=== PATIENT | male | born 1980 | race Caucasian/White ===

== ENCOUNTER 2017-05-06 11:55 | Emergency (ER) | payer BC ==
[2017-05-06 12:13] VITALS: BP 151/91
--- NOTE | 2017-05-06 12:47 | RAD ---
Indication: Right hand injury. 4 views of the right hand demonstrates fracture of the head of the fourth and fifth metacarpals. No fracture is identified. IMPRESSION: Fractures of the head of the fourth and fifth metacarpal with volar angulation.
--- NOTE | 2017-05-06 13:48 | UC ---
Hand/Wrist HPI - HPI Summary HPI Summary: PUNCHED COMPUTER TABLE LAST NIGHT OUT OF FRUSTRATION WHEN COMPUTER WOULD NOT WORK. PRESENTS WITH PAIN, REDNESS, SWELLING AND BRUISING TO RIGHT HAND OVER 4TH AND 5TH METACARPALS. - History Of Current Complaint Chief Complaint: UCUpperExtremity Stated Complaint: HAND INJURY Time Seen by Provider: 05/06/17 12:16 Hx Obtained From: Patient Onset/Duration: Sudden Onset, Lasting Hours, Still Present Severity Initially: Moderate Severity Currently: Moderate Pain Intensity: 5 Pain Scale Used: 0-10 Numeric Character Of Pain: Dull, Aching Aggravating Factor(s): Movement Alleviating Factor(s): Nothing Associated Signs And Symptoms: Positive: Swelling, Redness, Bruising Related History: Dominant Hand Right - Allergies/Home Medications Allergies/Adverse Reactions: Allergies Allergy/AdvReac Type Severity Reaction Status Date / Time No Known Allergies Allergy Verified 05/06/17 12:06 Home Medications: Home Medications Aleve 1 tab PO PRN 05/06/17 [History] PMH/Surg Hx/FS Hx/Imm Hx Previously Healthy: Yes - Surgical History Surgical History: None - Family History Known Family History: Positive: Hypertension - Social History Alcohol Use: Rare Substance Use Type: None Smoking Status (MU): Former Smoker Length of Time of Smoking/Using Tobacco: 1 year Review of Systems Constitutional: Negative Skin: Bruising Respiratory: Negative Cardiovascular: Negative Gastrointestinal: Negative Musculoskeletal: Arthralgia, Decreased ROM, Edema All Other Systems Reviewed And Are Negative: Yes Physical Exam Triage Information Reviewed: Yes Appearance: Well-Appearing, No Pain Distress, Well-Nourished Vital Signs: Initial Vital Signs Temp 97.8 F 05/06/17 12:09 Pulse 72 05/06/17 12:09 Resp 16 05/06/17 12:09 BP 151/91 05/06/17 12:09 Pulse Ox 99 05/06/17 12:09 Vital Signs Reviewed: Yes Eyes: Positive: Conjunctiva Clear ENT: Positive: Hearing grossly normal Neck: Positive: Supple Respiratory: Positive: No respiratory distress, No accessory muscle use Cardiovascular: Positive: Pulses Normal Abdomen Description: Positive: Soft Musculoskeletal: Positive: ROM Limited @ - RIGHT HAND, Edema @ - RIGHT HAND, Other: - TTO RIGHT HAND 4TH AND 5TH METACARPALS Neurological: Positive: Alert Psychological: Positive: Age Appropriate Behavior Skin: Positive: Other - ERYTHEMA AND BRUISING RIGHT HAND OVERLYING 4TH AND 5TH METACARPALS Diagnostics - Radiology RIGHT HAND XRAY Xray Interpretation: Positive (See Comments) - Fractures of the head of the fourth and fifth metacarpal with volar angulation. Radiology Interpretation Completed By: Radiologist Hand/Wrist Course/Dx - Differential Dx/Diagnosis Provider Diagnoses: Fractures of the head of the fourth and fifth metacarpals - displaced Discharge - Discharge Plan Condition: Stable Disposition: HOME Patient Education Materials: Hand Fracture (ED) Referrals: Ronak Ragsdale MD [Medical Doctor] - 3 Days OFelisha Duff MD [Primary Care Provider] - If Needed Additional Instructions: XRAYS SHOW FRACTURES OF THE 4TH AND 5TH METACARPALS. WEAR THE SPLINT UNTIL SEEN BY [facility]. SLING FOR COMFORT. CALL [facility] TODAY FOR AN APPT EARLY NEXT WEEK. OTC MEDS NEEDED FOR PAIN. GO TO ER WITHOUT FAIL IF YOU DEVELOP WORSENING PAIN, FINGERS GO COLD, NUMB OR CHANGE COLOR.
== END 2017-05-06 13:43 | disposition home or self-care (01) ==
LOC: UCEAST 11:55
DX: S62.312A Displaced fracture of base of third metacarpal bone, right hand, initial encounter for closed fracture (principal); S62.314A Displaced fracture of base of fourth metacarpal bone, right hand, initial encounter for closed fracture; W22.09XA Striking against other stationary object, initial encounter; Y93.9 Activity, unspecified; Y92.9 Unspecified place or not applicable; Y99.9 Unspecified external cause status
CPT/HCPCS: 99211; G0463

== ENCOUNTER 2017-08-12 15:11 | Emergency (ER) | payer BC ==
[2017-08-12 16:26] VITALS: BP 145/88
--- NOTE | 2017-08-12 18:54 | UC ---
Throat Pain/Nasal [place] HPI - HPI Summary HPI Summary: sore throat that began 3 days ago - History of Current Complaint Chief Complaint: UCRespiratory Stated Complaint: SORE THROAT Time Seen by Provider: 08/12/17 18:52 Hx Obtained From: Patient Onset/Duration: Sudden Onset, Lasting Days - 3, Lasting Weeks Severity: Moderate Pain Intensity: 3 Cough: None - Allergies/Home Medications Allergies/Adverse Reactions: Allergies Allergy/AdvReac Type Severity Reaction Status Date / Time No Known Allergies Allergy Verified 05/06/17 12:06 Home Medications: Home Medications Dm/PE/Acetaminophen/Doxylamine [Vicks Nyquil Severe Cold-Flu] 1 liq PO 08/12/17 [History] Menthol (Mouth-Throat) [Cepacol Sore Throat] 5.4 mg MT 08/12/17 [History] PMH/Surg Hx/FS Hx/Imm Hx Previously Healthy: Yes - Surgical History Surgical History: None - Family History Known Family History: Positive: Hypertension - Social History Occupation: Employed Full-time Lives: With Family Alcohol Use: Rare Substance Use Type: None Smoking Status (MU): Former Smoker Length of Time of Smoking/Using Tobacco: 1 year Review of Systems Constitutional: Negative Skin: Negative Eyes: Negative ENT: Sore Throat Respiratory: Negative Cardiovascular: Negative Gastrointestinal: Negative Genitourinary: Negative Motor: Negative Neurovascular: Negative Musculoskeletal: Negative Neurological: Negative Psychological: Negative Is Patient Immunocompromised?: No All Other Systems Reviewed And Are Negative: Yes Physical Exam Triage Information Reviewed: Yes Appearance: Well-Appearing, No Pain Distress, Well-Nourished Vital Signs: Initial Vital Signs Temp 98.1 F 08/12/17 16:22 Pulse 84 08/12/17 16:22 Resp 18 08/12/17 16:22 BP 145/88 08/12/17 16:22 Pulse Ox 98 08/12/17 16:22 Vital Signs Reviewed: Yes Eye Exam: Normal Eyes: Positive: Conjunctiva Clear ENT Exam: Normal ENT: Positive: Normal ENT inspection, Hearing grossly normal, Pharyngeal erythema, TMs normal, Uvula midline. Negative: Nasal congestion, Tonsillar swelling, Tonsillar exudate, Trismus, Muffled voice, Hoarse voice, Dental tenderness, Sinus tenderness Dental Exam: Normal Neck exam: Normal Neck: Positive: Supple, Nontender, No Lymphadenopathy Respiratory Exam: Normal Respiratory: Positive: Chest non-tender, Lungs clear, Normal breath sounds, No respiratory distress, No accessory muscle use Cardiovascular Exam: Normal Cardiovascular: Positive: RRR, No Murmur, Pulses Normal, Brisk Capillary Refill Musculoskeletal Exam: Normal Musculoskeletal: Positive: Strength Intact, ROM Intact, No Edema Neurological Exam: Normal Neurological: Positive: Alert, Muscle Tone Normal Psychological Exam: Normal Skin Exam: Normal Diagnostics - Laboratory Diagnostic Studies Completed/Ordered: RST (+) Throat Pain/Nasal Course/Dx - Course Assessment/Plan: Amoxicillin, ibuprofen, tylenol, increase fluids follow with pcp - Differential Dx/Diagnosis Provider Diagnoses: Strep Pharyngitis, elevated Blood pressure with dx of hypertension Discharge - Discharge Plan Condition: Stable Disposition: HOME Prescriptions: Amoxicillin PO (*) [Amoxicillin 500 MG CAP*] 500 mg PO Q12H #20 cap Patient Education Materials: Strep Throat (ED), Hypertension (ED) Referrals: [facility] [Outside] - 2 Weeks
== END 2017-08-12 19:05 | disposition home or self-care (01) ==
LOC: UCEAST 15:11
DX: J02.0 Streptococcal pharyngitis (principal); R03.0 Elevated blood-pressure reading, without diagnosis of hypertension; Z87.891 Personal history of nicotine dependence
CPT/HCPCS: 87651; 99212; G0463

== ENCOUNTER 2019-02-26 18:34 | Emergency (ER) | payer BC ==
[2019-02-26 20:14] VITALS: BP 137/86
--- NOTE | 2019-02-26 20:34 | UC ---
Hand/Wrist HPI - HPI Summary HPI Summary: Pt c/o right ring finger pain s/p having his dog "run into him" while playing catch and "jamming" his finger. Pt states finger is painful and he has difficulty extending and flexing his finger. - History Of Current Complaint Chief Complaint: UCUpperExtremity Stated Complaint: RT RING FINGER INJURY Time Seen by Provider: 02/26/19 20:10 Hx Obtained From: Patient ?: No Onset/Duration: Sudden Onset, Still Present Severity Initially: Moderate Severity Currently: Moderate Pain Intensity: 8 Character Of Pain: Dull, Aching Aggravating Factor(s): Flexion, Extension, Other - pt is unable to extend or flex finger Alleviating Factor(s): Rest Associated Signs And Symptoms: Positive: Swelling, Bruising Related History: Similar Episode/Dx As - hand fracture, Dominant Hand Right, Immobility - Risk Factors Compartment Syndrome Risk Factors: Pain - Allergies/Home Medications Allergies/Adverse Reactions: Allergies Allergy/AdvReac Type Severity Reaction Status Date / Time No Known Allergies Allergy Verified 05/06/17 12:06 Home Medications: Home Medications NK [No Home Medications Reported] 02/26/19 [History Confirmed 02/26/19] PMH/Surg Hx/FS Hx/Imm Hx Previously Healthy: Yes - Surgical History Surgical History: None - Family History Known Family History: Positive: Hypertension - Social History Occupation: Employed Full-time Lives: With Family Alcohol Use: Occasionally Substance Use Type: None Smoking Status (MU): Former Smoker Length of Time of Smoking/Using Tobacco: 1 year Have You Smoked in the Last Year: No When Did the Patient Quit Smoking/Using Tobacco: 2015 - Immunization History Vaccination Up to Date: Yes Review of Systems All Other Systems Reviewed And Are Negative: Yes Constitutional: Positive: Negative Skin: Positive: Bruising - DIP joint right ring finger Eyes: Positive: Negative ENT: Positive: Negative Respiratory: Positive: Negative Cardiovascular: Positive: Negative Gastrointestinal: Positive: Negative Genitourinary: Positive: Negative Motor: Positive: Decreased ROM - right ring finger Neurovascular: Positive: Other - decreased ROM Musculoskeletal: Positive: Decreased ROM - righ tring finger, Edema, Myalgia Neurological: Positive: Negative Psychological: Positive: Negative Is Patient Immunocompromised?: No Physical Exam Triage Information Reviewed: Yes Appearance: Well-Appearing Vital Signs: Initial Vital Signs Temp 98.2 F 02/26/19 20:09 Pulse 87 08/19/19 20:09 Resp 16 02/26/19 20:09 BP 137/86 02/26/19 20:09 Pulse Ox 98 02/26/19 20:09 Vital Signs Reviewed: Yes Eye Exam: Normal ENT Exam: Normal ENT: Positive: Hearing grossly normal Dental Exam: Normal Neck exam: Normal Respiratory: Positive: No respiratory distress Musculoskeletal: Positive: Strength Limited @ - right ring finger, ROM Limited @ - right ring finger Neurological: Positive: Muscle Tone Normal - right ring finger Psychological Exam: Normal Skin Exam: Other - bruising right ring finger dip joint Hand/Wrist Course/Dx - Course Course Of Treatment: I discussed my review of the xray and informed pt that radiologist will read xray the next day. I also discussed my concern for tendon injury and recommended that pt see a hand specialist. Pt verblized understanding and agreed to plan of care. - Differential Dx/Diagnosis Differential Diagnosis/HQI/PQRI: Fracture, Sprain, Strain, Other - tendon Provider Diagnosis: Jammed interphalangeal joint of finger of right hand Discharge - Sign-Out/Discharge Documenting (check all that apply): Patient Departure All imaging exams completed and their final reports reviewed: No - Discharge Plan Condition: Stable Disposition: HOME Patient Education Materials: Stephany Willis (ED) Referrals: Jatinder Salazar MD [Primary Care Provider] - If Needed Jose Elliott MD [Medical Doctor] - As Soon As Possible Lin Álvarez MD [Medical Doctor] - As Soon As Possible - Billing Disposition and Condition Condition: STABLE Disposition: Home
--- NOTE | 2019-02-27 08:10 | UC ---
- Progress Note Progress Note: xray report : TECHNIQUE: 3 views of the right ring finger were obtained. FINDINGS: There appear to be old healed fractures of the distal fourth and fifth metacarpals. The bones are normal alignment. No acute fracture is seen. IMPRESSION: NO ACUTE FRACTURE IS SEEN. Course/Dx - Diagnoses Provider Diagnoses: Jammed interphalangeal joint of finger of right hand Discharge - Sign-Out/Discharge Documenting (check all that apply): Patient Departure, Post-Discharge Follow Up All imaging exams completed and their final reports reviewed: Yes - Discharge Plan Condition: Stable Disposition: HOME Patient Education Materials: Stephany Finger (ED) Referrals: Jatinder Salazar MD [Primary Care Provider] - If Needed Jose Elliott MD [Medical Doctor] - As Soon As Possible Lin Álvarez MD [Medical Doctor] - As Soon As Possible - Billing Disposition and Condition Condition: STABLE Disposition: Home
== END 2019-02-26 20:56 | disposition home or self-care (01) ==
LOC: UCCORT 18:34
DX: S69.91XA Unspecified injury of right wrist, hand and finger(s), initial encounter (principal); W54.1XXA Struck by dog, initial encounter; Y93.89 Activity, other specified; Y92.9 Unspecified place or not applicable
CPT/HCPCS: 73140; 99212; G0463